=== PATIENT | female | born 1965 | race Caucasian/White ===

== ENCOUNTER 2018-12-23 12:21 | Emergency (ER) | payer OTHER ==
[2018-12-23] MEDS ORDERED: Meclizine HCl 25 MG TAB ONE ×2 (13:06→13:11)
[2018-12-23 13:15] LABS: #Eosinphils 0.2 thou/uL (0.0-0.7); #Lymphocytes 1.7 thou/uL (1.20-3.40); #Monocytes 0.5 thou/uL (0.11-0.59); #Neutrophils 6.3 thou/uL (1.40-6.50); %Basophils 0.5 % (0.0-1.0); %Eosinophils 2.8 % (0.0-10.0); %Lymphocytes 19.7 % (21.0-51.0); %Monocytes 5.8 % (0.0-10.0); %Neutrophils 71.1 % (42.0-75.0); Hemoglobin 13.6 g/dL (12.0-16.0); Mean Corpuscular HGB CONC 34.2 g/dL (32.0-36.0); Mean Corpuscular Hemoglobin 30.3 pg (27.0-31.0); Mean Corpuscular Volume 88.7 fL (78.0-98.0); Platelet Count 295 thou/uL (130-400); RBC Distribution Width 12.3 % (11.5-14.5); Red Blood Cell (RBC) Count 4.48 mill/uL (4.20-5.40); White Blood Cell (WBC) Count 8.8 thou/uL (4.8-10.8)
[2018-12-23 13:33] LABS: ALT (SGPT) 30 U/L (8-55); AST (SGOT) 31 U/L (5-34); Albumin 4.1 g/dL (3.5-5.0); Alkaline Phosphatase 102 U/L (40-150); Anion Gap 15 mmol/L (10-20); BUN (Urea Nitrogen) 17 mg/dL (9.8-20.1); Bilirubin, Total 0.5 mg/dL (0.2-1.2); Calc. Creatinine Clearance 0 mL/min (70-130); Calcium 9.7 mg/dL (7.8-10.44); Carbon Dioxide 22 mmol/L (22-29); Chloride 103 mmol/L (98-107); Estimated GFR-MDRD 88; Glucose 100 mg/dL (70-105); Potassium 3.8 mmol/L (3.5-5.1); Protein, Total 7.1 g/dL (6.0-8.3); Sodium 136 mmol/L (136-145)
--- NOTE | 2018-12-23 13:40 | RAD ---
RADIOGRAPH CHEST 1 VIEW: DATE: 12/23/2018 HISTORY: 53-year-old female with chest pain and dyspnea FINDINGS: There is no airspace density, pulmonary edema, or pneumothorax. The lateral costophrenic angles are n ot effaced. Prominent dextroscoliosis of the thoracic spine. Prominent cardiac shadow. IMPRESSION: 1. No acute pulmonary findings. 2. Dextroscoliosis of thoracic spine.
--- NOTE | 2018-12-23 13:41 | CT ---
HEAD CT WITHOUT CONTRAST: Date: 12/23/18 COMPARISON: None. HISTORY: Syncope and collapse. TECHNIQUE: Axial CT imaging at 5 mm intervals from vertex through skull base without contrast. FINDINGS: The imaged paranasal sinuses and mastoid air cells are well aerated. There is no displaced calvarial fracture. There is no intracranial hemorrhage, midline shift, mass effect, or ventricular enlargement. IMPRESSION: No acute findings. POS: [facility]
[2018-12-23] MEDS ORDERED: HYDROcodone/Acetaminophen 10/325 mg Tablet ONE (15:14)
--- NOTE | 2018-12-26 15:22 | EKG ---
Test Reason : Blood Pressure : / mmHG Vent. Rate : 058 BPM Atrial Rate : 058 BPM P-R Int : 176 ms QRS Dur : 076 ms QT Int : 424 ms P-R-T Axes : 050 -13 019 degrees QTc Int : 416 ms Sinus bradycardia Inferior infarct , age undetermined Abnormal ECG Confirmed by KALA PRIDE DO ([id number]), managing consultant DARREN STANLEY ([id number]) on 12/26/2018 3:21:34 PM Referred By: Confirmed By:KALA PRIDE DO
== END 2018-12-23 15:26 | disposition home or self-care (01) ==
LOC: ERS 12:21
DX: R55 Syncope and collapse (principal); R42 Dizziness and giddiness; I10 Essential (primary) hypertension; F32.9 Major depressive disorder, single episode, unspecified; Z87.891 Personal history of nicotine dependence
CPT/HCPCS: 36415; 36416; 70450; 71045; 80053; 84484; 85025; 85379; 93005; J8597